=== PATIENT | female | born 2000 | race Caucasian/White ===

== ENCOUNTER 2022-08-04 20:38 | Emergency (ER) | payer OTHER ==
[~2022-08-04] VITALS: Ht 170.2 cm; Wt 88.5 kg
[2022-08-04] MEDS ORDERED: KETOROLAC 30 MG/ML VIAL IM ONE (22:35)
[2022-08-04] MEDS ORDERED: PROCHLORPERAZINE 10 MG/2 ML VIAL IM ONE (22:35)
[2022-08-04 22:38] VITALS: BP 118/73
--- NOTE | 2022-08-04 22:44 | NUR ---
TRIAGED, UA OBTAINED AND SENT TO LOBBY
[2022-08-04] MEDS ORDERED: IBUP-2213 PO (22:53)
[2022-08-04] MEDS ORDERED: ACET-10509 PO (22:53)
[2022-08-04 23:11] LABS: APPEARANCE,URINE SL CLOUDY (CLEAR); BILIRUBIN,URINE NEGATIVE (NEGATIVE); BLOOD, URINE NEGATIVE (NEGATIVE); COLOR,URINE YELLOW (YELLOW); LEUKOCYTE ESTERASE ,URINE TRACE (NEGATIVE); NITRITE, URINE NEGATIVE (NEGATIVE); PH,URINE 6.5 (5.0-9.0); UGLUCOSE NEGATIVE (NEGATIVE)
--- NOTE | 2022-08-04 23:55 | NUR ---
Patient discharged with v/s stable. Written and verbal after care instructions given and explained. Patient verbalized understanding. Ambulatory with steady gait. All questions addressed prior to discharge. Advised to follow up with PMD.
== END 2022-08-04 23:55 | disposition home or self-care (01) ==
LOC: MED 20:38
DX: G43.909 Migraine, unspecified, not intractable, without status migrainosus (principal); Z79.899 Other long term (current) drug therapy; Z79.1 Long term (current) use of non-steroidal anti-inflammatories (NSAID)
CPT/HCPCS: 81003; 81025; 96372; 99284; J0780; J1885

== ENCOUNTER 2023-02-25 01:02 | Emergency (ER) | payer OTHER ==
[~2023-02-25] VITALS: Ht 170.2 cm; Wt 104.3 kg
[~2023-02-25 01:02] MED LIST: ACET-10509 PO; IBUP-2213 PO
[2023-02-25 01:22] VITALS: BP 122/80; PULSE 92; RESP 20; TEMP 98; O2SAT 98
== END 2023-02-25 03:00 | disposition left against medical advice (07) ==
LOC: MED 01:02
DX: M79.602 Pain in left arm (principal); Z53.21 Procedure and treatment not carried out due to patient leaving prior to being seen by health care provider
CPT/HCPCS: 99281